=== PATIENT | female | born 1955 | race African-American/Black ===

== ENCOUNTER 2020-08-26 06:57 | Day surgery (SDC) | payer MEDICAID, SELFPAY ==
[~2020-08-26] VITALS: Ht 172.7 cm; Wt 89.4 kg
[2020-08-26] MEDS ORDERED: SIMETHICONE 40 MG/0.6 ML ML ONE (07:24)
[2020-08-26] MEDS ORDERED: MIDAZOLAM HCL 5 MG/5 ML VIAL ONE (07:24)
[2020-08-26] MEDS ORDERED: fentaNYL CITRATE/PF 100 MCG/2 ML AMP ONE (07:25)
[2020-08-26] MEDS ORDERED: MEPERIDINE 100 MG INJ. 100 MG/ML VIAL ONE (07:47)
[2020-08-26 09:26] VITALS: BP_SYST 130
== END 2020-08-26 09:15 | disposition home or self-care (01) ==
LOC: SMU 06:57 → SDS 06:57
PROVIDERS: ATTEND Internal Medicine Gastroenterology
DX: R19.5 Other fecal abnormalities (principal); K63.5 Polyp of colon; K57.30 Diverticulosis of large intestine without perforation or abscess without bleeding; K64.8 Other hemorrhoids; I10 Essential (primary) hypertension; Z79.899 Other long term (current) drug therapy; Z20.828 Contact with and (suspected) exposure to other viral communicable diseases
CPT/HCPCS: 45380; 88305; 99152; G0378; J2175; J2250; J7030; U0003; J3010